=== PATIENT | male | born 1955 | race Hispanic/Latino ===

== ENCOUNTER 2022-05-27 20:56 | Inpatient (IN) | payer OTHER, MEDICAID ==
[2022-05-27] MEDS ORDERED: FENTANYL 50 MCG/ML 1 ML VIAL ONE (22:18)
[2022-05-27] MEDS ORDERED: Dextrose 5% in Water 1,000 ML IV PRN (23:00)
[2022-05-27] MEDS ORDERED: Dextrose 50% Abboject 50 ML SYRINGE SLOW IVP PRN (23:00)
[2022-05-27] MEDS ORDERED: Morphine 2 MG/ML VIAL SLOW IVP PRN (23:00)
[2022-05-27] MEDS ORDERED: Ondansetron PF 4 MG/2 ML Vial IVP PRN (23:00)
[2022-05-27] MEDS ORDERED: Insulin Regular 300 UNITS/3 ML VIAL SC PRN (23:00)
[2022-05-27] MEDS ORDERED: traMADol HCl 50 MG TAB PO PRN (23:18)
[2022-05-27] MEDS ORDERED: Lidocaine 1% w/Epinephrine 1:100K 20 ML VIAL ONE (23:50)
[2022-05-27 23:55] LABS: #Eosinphils 0.1 thou/uL (0.0-0.7); #Lymphocytes 1.3 thou/uL (1.20-3.40); #Monocytes 1.2 thou/uL (0.11-0.59); #Neutrophils 11.1 thou/uL (1.40-6.50); %Basophils 0.3 % (0.0-1.0); %Lymphocytes 9.7 % (21.0-51.0); %Monocytes 8.7 % (0.0-10.0); %Neutrophils 80.4 % (42.0-75.0); Hemoglobin 12.7 g/dL (14.0-18.0); Mean Corpuscular HGB CONC 34.1 g/dL (32.0-36.0); Mean Platelet Volume 8.5 fL (7.4-10.4); Platelet Count 202 10x3/uL (130-400); RBC Distribution Width 12.1 % (11.5-14.5); Red Blood Cell (RBC) Count 4.55 mill/uL (4.70-6.10); White Blood Cell (WBC) Count 13.9 10x3/uL (4.8-10.8)
[2022-05-27] MEDS ORDERED: Sodium Chloride 0.9% 1,000 ML IV SCH (23:59)
[2022-05-28 00:15] LABS: PTT 25.8 sec (22.9-36.1); Prothrombin Time 13.4 sec (12.0-14.7)
[2022-05-28 00:18] LABS: ALT (SGPT) 35 U/L (8-55); AST (SGOT) 58 U/L (5-34); Albumin 3.2 g/dL (3.4-4.8); Alkaline Phosphatase 90 U/L (40-110); Anion Gap 12 mmol/L (10-20); BUN (Urea Nitrogen) 26 mg/dL (8.4-25.7); Bilirubin, Total 0.3 mg/dL (0.2-1.2); CK (CPK) 1486 U/L (30-200); Calc. Creatinine Clearance 0 mL/min (70-130); Calcium 9.5 mg/dL (7.8-10.44); Carbon Dioxide 27 mmol/L (23-31); Chloride 99 mmol/L (98-107); Estimated GFR 37; Globulin 2.7 g/dL (2.4-3.5); Glucose 362 mg/dL (80-115); Potassium 4.8 mmol/L (3.5-5.1); Protein, Total 5.9 g/dL (5.8-8.1); Sodium 133 mmol/L (136-145)
[2022-05-28] MEDS ORDERED: ALBUMIN 5% 25 GM/500 ML BAG IVPB SCH (01:00)
[2022-05-28] MEDS: Acetaminophen 500 MG TAB PO SCH ×4 (02:00→18:18)
[2022-05-28 03:00] VITALS: BMI 24.4
[2022-05-28] MEDS ORDERED: Oxazepam 10 MG CAP PO SCH (06:00)
[2022-05-28] MEDS ORDERED: traMADol HCl 50 MG TAB PO SCH (06:00)
[2022-05-28 06:01] LABS: Amphetamine Detected (NotDetected); Barbiturates Screen Not Detected (NotDetected); Benzodiazepine Screen Not Detected (NotDetected); Cocaine Metabolite Screen Not Detected (NotDetected); Methadone Not Detected (NotDetected); Methamphetamine Detected (NotDetected); Opiate Screen Not Detected (NotDetected); Oxycodone Screen Not Detected (NotDetected); Phencyclidine (PCP) Not Detected (NotDetected); THC/Cannabinoid Screen Detected (NotDetected); Tricyclic Screen Not Detected (NotDetected)
[2022-05-28 06:07] LABS: Bacteria/HPF None Seen HPF (None Seen); Bilirubin Negative (Negative); Blood, Urine 3+ (Negative); CAUTI Indications for Culture Alt mental st,lethar; Clarity Clear (Clear); Glucose, Urine (Dipstick) Greater than 1000 mg/dL (Negative); Ketone, Urine Negative (Negative); Leukocyte 25 Leu/uL (Negative); Nitrite Negative (Negative); Protein, Urine (Dipstick) 70 mg/dL (Neg-Trace); RBC/HPF Greater than 50 HPF (0-3); Specific Gravity, Urine 1.019 (1.002-1.036); Squamous Epithelial 0-3 HPF (0-3); Urobilinogen Normal mg/dL (Less than 2)
[2022-05-28 06:16] LABS: Urine Culture Reflex Yes Yes
[2022-05-28] MEDS ORDERED: Ipratropium/Albuterol 3 ML NEB NEB SCH (06:30)
[2022-05-28] MEDS ORDERED: Phenazopyridine HCl 100 MG TAB PO PRN (07:19)
[2022-05-28] MEDS ORDERED: Famotidine 20 MG TAB PO SCH (09:00)
[2022-05-28] MEDS: Folic Acid 1 MG TAB PO SCH (10:04)
[2022-05-28] MEDS: Tamsulosin HCl 0.4 MG CAP PO SCH (10:04)
[2022-05-28] MEDS: Thiamine 100 MG TAB PO SCH (10:04)
[2022-05-28] MEDS: Sodium Chloride 0.9% 1,000 ML IV SCH ×3 (10:04→18:55)
[2022-05-28 11:55] LABS: #Eosinphils 0.2 thou/uL (0.0-0.7); #Lymphocytes 1.2 thou/uL (1.20-3.40); #Monocytes 0.8 thou/uL (0.11-0.59); #Neutrophils 3.9 thou/uL (1.40-6.50); %Basophils 0.5 % (0.0-1.0); %Eosinophils 3.7 % (0.0-10.0); %Lymphocytes 19.9 % (21.0-51.0); %Monocytes 13.1 % (0.0-10.0); %Neutrophils 62.9 % (42.0-75.0); Hemoglobin 10.6 g/dL (14.0-18.0); Mean Corpuscular HGB CONC 33.4 g/dL (32.0-36.0); Mean Corpuscular Volume 83.7 fl (78.0-98.0); Platelet Count 166 10x3/uL (130-400); Red Blood Cell (RBC) Count 3.79 mill/uL (4.70-6.10); White Blood Cell (WBC) Count 6.2 10x3/uL (4.8-10.8)
[2022-05-28 12:06] LABS: INR-International Normal Ratio 1.1; PTT 27.7 sec (22.9-36.1); Prothrombin Time 14.1 sec (12.0-14.7)
[2022-05-28 12:25] LABS: ALT (SGPT) 27 U/L (8-55); AST (SGOT) 49 U/L (5-34); Albumin 3.1 g/dL (3.4-4.8); Alkaline Phosphatase 73 U/L (40-110); Anion Gap 9 mmol/L (10-20); BUN (Urea Nitrogen) 22 mg/dL (8.4-25.7); Bilirubin, Total 0.6 mg/dL (0.2-1.2); Calc. Creatinine Clearance 70 mL/min (70-130); Carbon Dioxide 24 mmol/L (23-31); Chloride 105 mmol/L (98-107); Estimated GFR 69; Globulin 2.2 g/dL (2.4-3.5); Glucose 186 mg/dL (80-115); Potassium 4.4 mmol/L (3.5-5.1); Protein, Total 5.3 g/dL (5.8-8.1); Sodium 134 mmol/L (136-145)
[2022-05-28] MEDS ORDERED: Ipratropium 200 Puff Oral Inhaler INH SCH (12:30)
[2022-05-28] MEDS ORDERED: Fentanyl 250 MCG/5 ML VIAL ONE (13:01)
[2022-05-28] MEDS ORDERED: FENTANYL 50 MCG/ML 1 ML VIAL ONE (13:01)
[2022-05-28] MEDS: Albuterol 200 PUFF (6.7GM INHALER) INH SCH (13:08)
[2022-05-28] MEDS: Senokot S 8.6-50 MG TAB PO SCH ×2 (13:26→21:24)
[2022-05-28] MEDS ORDERED: CEFAZOLIN 2 GM VIAL ONE (13:56)
[2022-05-28] MEDS ORDERED: Sodium Chloride 0.9% 100 ML ONE (13:56)
[2022-05-28] MEDS ORDERED: NEOSTIGMINE 3 MG/3 ML SYR 3 MG/3 ML SYRINGE ONE (14:14)
[2022-05-28] MEDS ORDERED: Lidocaine 1% PF 5 ML VIAL ONE (14:14)
[2022-05-28] MEDS ORDERED: Rocuronium Bromide 10 MG/ML (10ML VIAL) ONE (14:14)
[2022-05-28] MEDS ORDERED: PROPOFOL 200 MG/20 ML VIAL ONE (14:14)
[2022-05-28] MEDS ORDERED: GLYCOPYRROLATE/PF 0.2 MG/ML VIAL ONE (14:14)
[2022-05-28] MEDS ORDERED: Phenylephrine 10 MG/ML VIAL ONE (14:14)
[2022-05-28] MEDS ORDERED: ePHEDrine 50 MG/ML VIAL ONE (14:14)
[2022-05-28] MEDS ORDERED: Promethazine HCl 25 MG/ML VIAL IM PRN (16:03)
[2022-05-28] MEDS ORDERED: Ondansetron HCl/PF 4 MG/2 ML Vial IVP PRN (16:03)
[2022-05-28] MEDS: CEFAZOLIN 2 GM in Sodium Chloride 0.9% 100 ML IVPB SCH (21:18)
[2022-05-29] MEDS: Acetaminophen 500 MG TAB PO SCH ×2 (00:45→05:41)
[2022-05-29] MEDS: Sodium Chloride 0.9% 1,000 ML IV SCH ×2 (05:39→09:05)
[2022-05-29] MEDS: CEFAZOLIN 2 GM in Sodium Chloride 0.9% 100 ML IVPB SCH (05:39)
[2022-05-29] MEDS: Albuterol 200 PUFF (6.7GM INHALER) INH SCH ×4 (06:07→18:34)
[2022-05-29 07:34] LABS: #Eosinphils 0.1 thou/uL (0.0-0.7); #Monocytes 0.9 thou/uL (0.11-0.59); #Neutrophils 5.5 thou/uL (1.40-6.50); %Basophils 0.2 % (0.0-1.0); %Eosinophils 1.5 % (0.0-10.0); %Lymphocytes 12.8 % (21.0-51.0); %Monocytes 11.8 % (0.0-10.0); %Neutrophils 73.8 % (42.0-75.0); Mean Corpuscular HGB CONC 32.5 g/dL (32.0-36.0); Mean Corpuscular Hemoglobin 27.6 pg (27.0-31.0); Mean Corpuscular Volume 84.8 fl (78.0-98.0); Mean Platelet Volume 8.1 fL (7.4-10.4); Platelet Count 146 10x3/uL (130-400); Red Blood Cell (RBC) Count 3.25 mill/uL (4.70-6.10); White Blood Cell (WBC) Count 7.5 10x3/uL (4.8-10.8)
[2022-05-29 07:53] LABS: Glucose 262 mg/dL (80-115)
[2022-05-29] MEDS: Senokot S 8.6-50 MG TAB PO SCH ×2 (08:52→20:46)
[2022-05-29] MEDS: Famotidine 20 MG TAB PO SCH ×2 (08:54→20:45)
[2022-05-29] MEDS: Folic Acid 1 MG TAB PO SCH (08:57)
[2022-05-29] MEDS: Thiamine 100 MG TAB PO SCH (08:57)
[2022-05-29] MEDS: Tamsulosin HCl 0.4 MG CAP PO SCH (08:57)
[2022-05-29] MEDS: Insulin Regular 300 UNITS/3 ML VIAL SC PRN ×3 (08:58→16:31)
[2022-05-29] MEDS: Ibuprofen 200 MG TAB PO SCH ×2 (10:34→18:59)
[2022-05-29] MEDS: Acetaminophen/Codeine 30-300mg Tablet PO SCH ×2 (11:59→18:14)
[2022-05-29] MEDS: Acetaminophen 325 MG TAB PO SCH ×2 (12:01→18:15)
[2022-05-29] MEDS: Cyclobenzaprine 10 MG TAB PO PRN (20:46)
[2022-05-30] MEDS: Acetaminophen 325 MG TAB PO SCH ×4 (00:15→18:06)
[2022-05-30] MEDS: Acetaminophen/Codeine 30-300mg Tablet PO SCH ×4 (00:16→18:06)
[2022-05-30] MEDS: Ibuprofen 200 MG TAB PO SCH ×3 (01:03→18:06)
[2022-05-30] MEDS: Albuterol 200 PUFF (6.7GM INHALER) INH SCH ×3 (07:09→19:22)
[2022-05-30] MEDS: Cyclobenzaprine 10 MG TAB PO PRN (08:43)
[2022-05-30] MEDS: Famotidine 20 MG TAB PO SCH ×2 (08:44→21:07)
[2022-05-30] MEDS: Thiamine 100 MG TAB PO SCH (08:44)
[2022-05-30] MEDS: Folic Acid 1 MG TAB PO SCH (08:44)
[2022-05-30] MEDS: Tamsulosin HCl 0.4 MG CAP PO SCH (08:45)
[2022-05-30] MEDS: Senokot S 8.6-50 MG TAB PO SCH ×2 (08:45→21:03)
[2022-05-30] MEDS: Gabapentin 300 MG CAP PO SCH ×3 (09:14→21:06)
[2022-05-30] MEDS: Insulin Regular 300 UNITS/3 ML VIAL SC PRN ×2 (11:48→15:54)
[2022-05-31] MEDS: Acetaminophen 325 MG TAB PO SCH ×2 (00:58→05:48)
[2022-05-31] MEDS: Acetaminophen/Codeine 30-300mg Tablet PO SCH ×2 (00:59→05:48)
[2022-05-31] MEDS: Ibuprofen 200 MG TAB PO SCH ×2 (03:51→08:45)
[2022-05-31] MEDS: Albuterol 200 PUFF (6.7GM INHALER) INH SCH ×2 (08:43→13:09)
[2022-05-31] MEDS: Gabapentin 300 MG CAP PO SCH (08:44)
[2022-05-31] MEDS: Folic Acid 1 MG TAB PO SCH (08:44)
[2022-05-31] MEDS: Senokot S 8.6-50 MG TAB PO SCH (08:44)
[2022-05-31] MEDS: Famotidine 20 MG TAB PO SCH (08:44)
[2022-05-31] MEDS: Thiamine 100 MG TAB PO SCH (08:44)
[2022-05-31] MEDS: Tamsulosin HCl 0.4 MG CAP PO SCH (08:44)
[2022-05-31] MEDS ORDERED: Escitalopram Oxalate 10 mg Tablet PO SCH (09:00)
[2022-05-31 11:31] VITALS: BP 101/65; TEMP 97.7
[2022-05-31] MEDS: Insulin Regular 300 UNITS/3 ML VIAL SC PRN (11:47)
[2022-05-31] MEDS ORDERED: Acetaminophen/Codeine 30-300mg Tablet PO SCH (12:00)
== END 2022-05-31 13:40 | DRG 517 ==
LOC: EDBD 20:56 → ERS 20:56 → SJJU 23:05
PROVIDERS: ADMIT Surgery; ATTEND Surgery
PROC: 0QS304Z Reposition Left Pelvic Bone with Internal Fixation Device, Open Approach (ICD-10-PCS; principal; 2022-05-28)
DX: S32.302A Unspecified fracture of left ilium, initial encounter for closed fracture (principal); J44.9 Chronic obstructive pulmonary disease, unspecified; E11.9 Type 2 diabetes mellitus without complications; I10 Essential (primary) hypertension; R33.9 Retention of urine, unspecified; S01.81XA Laceration without foreign body of other part of head, initial encounter; S52.022A Displaced fracture of olecranon process without intraarticular extension of left ulna, initial encounter for closed fracture; W17.89XA Other fall from one level to another, initial encounter; F17.210 Nicotine dependence, cigarettes, uncomplicated; Z89.411 Acquired absence of right great toe; Z89.421 Acquired absence of other right toe(s); Z85.46 Personal history of malignant neoplasm of prostate; Z85.51 Personal history of malignant neoplasm of bladder; Z92.3 Personal history of irradiation; Z98.890 Other specified postprocedural states; M47.892 Other spondylosis, cervical region
CPT/HCPCS: 36415; 36416; 70450; 71045; 72125; 72170; 72190; 72192; 80053; 80306; 81001; 82550; 82947; 85025; 85610; 85730; 86850; 86900; 86901; 87086; 93005; 94640; G0390; J1650; J1815; J2370; J2704; J3010; J3490; J7050; J7620; P9045